=== PATIENT | male | born 1950 | race Caucasian/White ===

== ENCOUNTER 2016-10-29 17:43 | Emergency (ER) | payer MEDICARE ==
[~2016-10-29] VITALS: Ht 175.3 cm; Wt 77.3 kg
[~2016-10-29 17:43] MED LIST: ALBU18HF INH; ASPI-973 PO; ATOR40TA69 PO; ATRINH INH; DILT120C83 PO; DOXY-226 PO; HYG25 PO; LISI-567 PO; PRE10 PO; SYMINH IH
[2016-10-29 17:48] VITALS: BP 183/120; PULSE 106; RESP 12; O2SAT 98
[2016-10-29 17:57] VITALS: BP 194/108; PULSE 101; RESP 24; O2SAT 98
--- NOTE | 2016-10-29 18:05 | ED.REPORT ---
HPI-General Illness Date of Service Oct 29, 2016 ED Provider: Nisa Jeter Patient is a 65 year old male with a hx of HTN, COPD, and chronic shoulder and knee pain who presents to the ED withdrawing from Oxycodone. He went from 7x 15 mg to 4x 15 mg a day to none today. He sustained a dose of 6-7x 15mg for 6-7 months. His last dose was 10 mg 18 hours ago. Associated symptoms include anxiety, tremors, diarrhea, chills, and diaphoresis. He denies fever, vomiting, abdominal pain, or any other symptoms. He confirms he has been self-medicating because he has been unable to obtain pain medication from a physician or pain clinic. He has never been on Suboxone before. He did not take his lisinopril this morning. Nursing Notes Stated Complaint: SUBSTANCE ABUSE Chief Complaint: Substance Abuse Nursing Notes Reviewed: Yes Allergies: Coded Allergies: acetaminophen (Verified Allergy, Severe, Rash, 01/23/16) Scheduled Aspirin (Aspirin) 81 Mg Tablet 81 MG PO DAILY Atorvastatin Calcium (Atorvastatin Calcium) 40 Mg Tablet 40 MG PO HS Budesonide/Formoterol 160-4.5 mcg Inh (Symbicort 160-4.5 mcg Inh) 120 Puff Inhaler 2 PUFFS IH BID Buprenorphine HCl/Naloxone HCl (Suboxone 8 mg-2 mg Sl Film) 1 Each Film 1 EACH SL DAILY 10/30 8mg 10/31 6mg 11/01 4mg 11/02 2mg 11/03 2mg Chlorthalidone (Chlorthalidone) 25 Mg Tablet 12.5 MG PO DAILY Diltiazem ER (Cardizem CD) 120 Mg Cap.er.24h 120 MG PO DAILY Doxycycline Hyclate DR (Doxycycline Hyclate DR) 100 Mg Tablet.dr 100 MG PO BID Ipratropium [place] (Atrovent HFA) 200 Puff/12.9 Gm Inhaler 2 PUFF INH TID Lisinopril (Lisinopril) 20 Mg Tablet 20 MG PO DAILY Prednisone (PredniSONE) 10 Mg Tablet 10 MG PO 6xdaily Scheduled PRN Albuterol Sulfate (Ventolin HFA Inhaler) 200 Puff/18 Gm Inhaler 2 PUFF INH Q4 PRN PRN For Wheezing General Time Seen by MD: 18:05 Chief Complaint Other (Withdrawal ) Hx Obtained From: Patient Arrived By: Walk-in Sudden in Onset?: Yes Similar Sx Previous: No Past Medical History Past Medical History 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 Physical Exam COW score = 23 Vital Signs Vital Signs Date Time Temp Pulse Resp B/P Pulse Ox O2 Delivery O2 Flow Rate FiO2 10/29/16 19:52 36.5 86 20 153/114 98 Room Air 10/29/16 19:00 104 15 182/113 98 Room Air 10/29/16 18:47 102 16 199/128 99 10/29/16 17:57 101 24 194/108 98 Room Air 10/29/16 17:48 36.2 106 12 183/120 98 Room Air Initial VS: Reviewed Neck: Full range of motion Neurologic: Alert, Oriented, Nonfocal General/Constitutional: Awake, Alert, Well developed Difficulty sitting still Focused and able to give a coherent history Head / Eyes: Atraumatic, Normocephalic Pupils slightly dilated Respiratory / Chest: Breath sounds NL, Breath sounds = bilat, No respiratory distress Cardiovascular: Heart sounds NL, No murmurs Heart Rate / Rhythm: Positive: Tachycardia Upper Extremities Upper Extremity / MS: No edema Lower Extremity / Pelvis / MS: No edema Skin: Warm, Dry Well healed orthopedic scars Re-Eval/Medical Decision Time of Eval: 19:22 Patient Status: Condition improved Re-Evaluation/Progress Note: Rechecked patient who is feeling much better. Good response to 8mg subutex Discussed plan for discharge. Patient understands and agrees with plan. All questions addressed at this time. Counseled Regarding: Diagnosis, Need for follow-up, When/why to return to ED Discharge & Departure Primary Impression: Narcotic withdrawal Additional Impression: HTN (hypertension) Hypertension type: unspecified secondary hypertension Qualified Code: I15.9 - Secondary hypertension, unspecified Disposition: Home Discharge Condition All VS Reviewed: Yes Condition: Improved Additional Instructions: Thank you for trying to get off the chronic pain medication. You are having some withdrawal symptoms and I can help that a bit. You were given 8mg of buprnorphine (subutex/suboxone) in the ER and it helped significantly. I am going to suggest that you taper off the suboxone over the next days: 10/30 8mg 10/31 6mg 11/01 4mg 11/02 2mg 11/03 2mg you will have 2 mg left over, you can take this on 11/04 if you need it. If you are feeling OK, you do not need to take it. With your next surgery, please discuss the plan for pain control BEFORE your surgery as well as the plan to taper off in a slow and safe manner. You need to to continue you daily blood pressure medication, you were given your usual 20mg of lisinopril in the ER today as you have missed your last 2 doses. Good luck! Referrals: NOPCP (PCP) Scribe Attestation Portions of this note were transcribed by Fifi Underwood. I, Dr. Jeter personally performed the history, physical exam and medical decision-making; I reviewed and confirmed the accuracy of the information in the transcribed note. Signed by: Fifi Underwood 10/29/16, 1940 Nisa Jeter MD Oct 29, 2016 18:05 [facility] UND[place]OD Oct 29, 2016 18:16
[2016-10-29] MEDS ORDERED: Buprenorphine 2 mg SL Tablet SL ONE (18:15)
[2016-10-29 18:47] VITALS: BP 199/128; PULSE 102; RESP 16; O2SAT 99
[2016-10-29 19:00] VITALS: BP 182/113; PULSE 104; RESP 15; O2SAT 98
[2016-10-29] MEDS ORDERED: BUPR1FIL3 SL (19:37)
[2016-10-29 19:52] VITALS: BP 153/114; PULSE 86; RESP 20; O2SAT 98
== END 2016-10-29 19:40 | disposition home or self-care (01) ==
LOC: SED 17:43
DX: F11.23 Opioid dependence with withdrawal (principal); I15.9 Secondary hypertension, unspecified; F41.9 Anxiety disorder, unspecified; R25.0 Abnormal head movements; R68.83 Chills (without fever); R19.7 Diarrhea, unspecified; R61 Generalized hyperhidrosis; I10 Essential (primary) hypertension; J44.9 Chronic obstructive pulmonary disease, unspecified; C44.90 Unspecified malignant neoplasm of skin, unspecified; R73.03 Prediabetes; Z86.73 Personal history of transient ischemic attack (TIA), and cerebral infarction without residual deficits; Z79.82 Long term (current) use of aspirin; Z87.891 Personal history of nicotine dependence; Z88.8 Allergy status to other drugs, medicaments and biological substances